=== PATIENT | female | born 2005 | race African-American/Black ===

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

== ENCOUNTER 2024-10-15 14:04 | Emergency (ER) | payer BC | END 2024-10-15 14:44 | disposition home or self-care (01) | LOC: NAV ERS 14:04 | DX: M54.50 Low back pain, unspecified (principal); E11.9 Type 2 diabetes mellitus without complications; Z79.84 Long term (current) use of oral hypoglycemic drugs | CPT/HCPCS: 99283 ==